=== PATIENT | female | born 1985 ===

== ENCOUNTER 2016-10-05 20:02 | Emergency (ER) | payer MEDICAID ==
[2016-10-05] MEDS ORDERED: KETOROLAC TROMETHAMINE 60 MG/2 ML VIAL ONE (21:22)
[2016-10-05] MEDS ORDERED: DIPHENHYDRAMINE HCL 50 MG/1 ML VIAL ONE (21:23)
[2016-10-05] MEDS ORDERED: METOCLOPRAMIDE HCL 5 MG/ML 2ML VIAL ONE (21:23)
== END 2016-10-05 21:49 | disposition home or self-care (01) ==
LOC: ED 20:02
DX: G43.909 Migraine, unspecified, not intractable, without status migrainosus (principal)
CPT/HCPCS: 99283 ×2; 96372 ×3; J1200; J2765; J1885